=== PATIENT | male | born 1990 | race Caucasian/White ===

== ENCOUNTER 2019-07-16 14:06 | Emergency (ER) | payer SELFPAY ==
[2019-07-16 14:11] VITALS: BP 162/11; PULSE 90; TEMP 97.6; BMI 19.8
--- NOTE | 2019-07-16 15:45 | PDOC ---
Attending Attestation - Resident Resident Name: Jessa Farah - HPI HPI: 07/16/19 16:20 Pt presents to the ED complaining of diffuse frontal headache similar to previous migraines. Denies nausea, vomiting or photophobia. - Physicial Exam PE: 07/16/19 16:27 Agree with resident exam. Patient is alert and oriented and in no acute distress. Lungs are clear. Heart regular rate and rhythm. Neuro: alert and oriented and x 3. CN grossly intact. Ambulatory with steady gait normal mood and affect. 07/16/19 16:28 - Medical Decision Making 07/16/19 16:30 Pt presents to the ED complaining of headache consistent with typical migraine. Will give pain control and reassess.
--- NOTE | 2019-07-16 15:50 | PDOC ---
History of Present Illness - General Chief Complaint: Blood Pressure Problem Stated Complaint: HYPERTENSION Time Seen by Provider: 07/16/19 15:21 - History of Present Illness Initial Comments: 07/16/19 15:55 28 y/o M hx of migraines and HTN, presents to the ED with complaint of migraine and blood pressure elevated to 170/100 prior to presentation. His blood pressure usually runs in the 150's. so far has not been placed on any medicaitons for BP control or migraine prophylaxis. He gets about 2 migraines a month that last about 24 hrs and are relieved with Excedrin. Has not had the best PCP follow up. Past History - Past Medical History Allergies/Adverse Reactions: Allergies Allergy/AdvReac Type Severity Reaction Status Date / Time No Known Allergies Allergy Verified 07/16/19 14:11 COPD: No HTN: Yes (non medicated) - Psycho Social/Smoking Cessation Hx Smoking History: Never smoked Review of Systems - Review of Systems Constitutional: No: Chills, Fever HEENTM: No: Eye Pain, Blurred Vision Respiratory: No: Cough, Shortness of Breath Cardiac (ROS): No: Chest Pain ABD/GI: No: Abdominal Distended : No: Burning, Dysuria Musculoskeletal: No: Back Pain Integumentary: No: Bruising, Change in Color *Physical Exam - Vital Signs Last Vital Signs Temp Pulse Resp BP Pulse Ox 97.6 F 90 20 162/11 L 100 07/16/19 14:08 07/16/19 14:08 07/16/19 14:08 07/16/19 14:08 07/16/19 14:08 - Physical Exam Comments: 07/16/19 16:09 PE: GENERAL: Awake, alert, and fully oriented, in no acute distress HEAD: No signs of trauma, normocephalic, atraumatic EYES: PERRLA, EOMI, sclera anicteric, conjunctiva clear ENT: Auricles normal inspection, hearing grossly normal, nares patent, oropharynx clear without exudates. Moist mucosa NECK: Normal ROM, supple, no lymphadenopathy, JVD, or masses LUNGS: No distress, speaks full sentences, clear to auscultation bilaterally HEART: Regular rate and rhythm, normal S1 and S2, no murmurs, rubs or gallops, peripheral pulses normal and equal bilaterally. ABDOMEN: Soft, nontender, normoactive bowel sounds. No guarding, no rebound. No masses EXTREMITIES : Normal inspection, Normal range of motion, no edema. No clubbing or cyanosis NEUROLOGICAL: Cranial nerves II through XII grossly intact. Normal speech, normal gait, no focal sensorimotor deficits SKIN: Warm, Dry, normal turgor, no rashes or lesions noted Medical Decision Making - Medical Decision Making 07/16/19 16:11 28 y/o M hx of migraines and HTN, presents to the ED with complaint of migraine and blood pressure elevated to 170/100 prior to presentation. EKG, toradol 30mg IM for pain control. Re-evaluate after medications 07/16/19 16:18 07/16/19 16:49 Repeat BP 151/103. Pt feels better and is ready to go home. Instructions for follow up with primary care at [facility] given to ensure adequate blood pressure monitoring. Discharge - Discharge Information Problems reviewed: Yes Clinical Impression/Diagnosis: Hypertension Qualifiers: Hypertension type: unspecified Qualified Code(s): I10 - Essential (primary) hypertension Condition: Stable Disposition: HOME - Admission No - Follow up/Referral Referrals: Gabe Hargrove MD [Staff Physician] - Easton Salomon MD [Staff Physician] - - Patient Discharge Instructions Patient Printed Discharge Instructions: Migraine -- Adult, DI for High Blood Pressure Additional Instructions: You were seen in the ED for a migraine and elevated blood pressuer. You were given pain medications which helped to reduce your blood pressure. Though improved, it is still elevated and your care is not complete until you establish care or follow up with a primary care doctor. We have given you information for the [facility] and it is important that you follow up with them in the next 5-7 days. Return to the ED if your symptoms worsen or if you develop fevers, chills, nausea , vomiting. - Post Discharge Activity
[2019-07-16] MEDS ORDERED: KETOROLAC TROMETHAMINE 30 MG/1 ML VIAL IVPUSH ONE (16:06)
[2019-07-16] MEDS ORDERED: KETOROLAC TROMETHAMINE 30 MG/1 ML VIAL IM ONE (16:25)
[2019-07-16] MEDS ORDERED: KETOROLAC TROMETHAMINE 30 MG/1 ML VIAL ONE (16:27)
== END 2019-07-16 17:17 | disposition home or self-care (01) ==
LOC: JER 14:06
PROC: 3E0233Z Introduction of Anti-inflammatory into Muscle, Percutaneous Approach (ICD-10-PCS; principal; 2019-07-16)
DX: I10 Essential (primary) hypertension (principal); G43.909 Migraine, unspecified, not intractable, without status migrainosus
CPT/HCPCS: 99281-25